=== PATIENT | male | born 1985 | race Caucasian/White ===

== ENCOUNTER 2025-02-10 17:28 | Emergency (ER) | payer BC ==
[~2025-02-10] VITALS: Ht 175.3 cm; Wt 85.0 kg
[2025-02-10 17:34] VITALS: TEMP 36.9; O2SAT 98
[2025-02-10] MEDS: ACETAMINOPHEN 325MG TABLET PO ONE (18:45)
[2025-02-10] MEDS ORDERED: ACET-2708 MT (19:35)
[2025-02-10 19:57] VITALS: BP 132/86; PULSE 67; RESP 14; O2SAT 100
== END 2025-02-10 20:13 | disposition home or self-care (01) ==
LOC: ER 17:28
DX: M25.572 Pain in left ankle and joints of left foot (principal); Z88.6 Allergy status to analgesic agent; Z90.89 Acquired absence of other organs; W18.30XA Fall on same level, unspecified, initial encounter; Y93.67 Activity, basketball; Y92.89 Other specified places as the place of occurrence of the external cause; Y99.8 Other external cause status
CPT/HCPCS: 99284; 73610; 73630; A6449